=== PATIENT | male | born 1940 | race Caucasian/White ===

== ENCOUNTER 2017-01-14 19:28 | Emergency (ER) | payer MEDICARE, BC ==
--- NOTE | ~2017-01-14 | CR156 ---
[facility] A Service of [facility] & [facility] RADIOLOGY TEXT RESULTS PATIENT: LILLIE TAI LOCATION: [place] : 44 UNIT #: [id number] AGE: [address]: Efren Guadalupe MD SEX: M ORDER DR: [id number] [facility] [address] [place], [place] [address] [id number] MR#: [id number] Acc #: [id number] NAME: LILLIE TAI : 1940 SEX: M STUDY DATE/TIME: 01/14/2017 19:11 UNIT: [facility] ROOM: STUDY DESCRIPTION: CR Humerus Min 2 View Lt Attending Physician: Efren Guadalupe M.D. Ordering Physician: Ed Ziggy Henao M.D. Primary Care Physician: Aj Rhodes Jr., M.D. MEDICAL IMAGING REPORT This report is preliminary unless electronic signature is present EXAM Left humerus 2 views, 01/14/2017 HISTORY Left humerus pain status post fall on left arm today with decreased range of motion. FINDINGS 2 views of the left humerus demonstrate transverse impacted fracture extending through the surgical neck of the proximal left humerus. No other fracture or dislocation is seen. The bones are normally mineralized. There is no soft tissue abnormality. The left acromioclavicular joint is intact. IMPRESSION Impacted fracture involving the surgical neck of the proximal left humerus. Dictated by... Baltazar Prieto M.D. THIS IS AN ELECTRONICALLY VERIFIED REPORT Baltazar Prieto M.D. at 01/15/2017 10:56 AM THOMAS/julio c TD: 01/15/2017 03:30 JOB #: [id number] MEDICAL IMAGING REPORT COPY
== END 2017-01-14 20:30 | disposition home or self-care (01) ==
LOC: CFTX 19:28
DX: S42.212A Unspecified displaced fracture of surgical neck of left humerus, initial encounter for closed fracture (principal); I10 Essential (primary) hypertension; Z88.0 Allergy status to penicillin; W19.XXXA Unspecified fall, initial encounter; Y92.9 Unspecified place or not applicable
CPT/HCPCS: 73060; 99283